=== PATIENT | male | born 2000 | race Caucasian/White ===

== ENCOUNTER 2024-08-16 03:31 | Emergency (ER) | payer OTHER, SELFPAY ==
[2024-08-16 03:34] VITALS: BP 154/104
[2024-08-16 03:51] VITALS: BMI 23.0
[2024-08-16 03:53] VITALS: BP 148/94
[2024-08-16 05:00] VITALS: BP 135/68
[2024-08-16 05:05] LABS: Amphetamines Negative (Negative); Barbiturates Negative (Negative); Benzodiazepines Negative (Negative); Buprenorphine Negative (Negative); Cocaine Negative (Negative); Marijuana Negative (Negative); Methadone Negative (Negative); Methamphetamines Negative (Negative); Opiates Negative (Negative); Phencyclidine Negative (Negative); Tricyclic Antidepressants Negative (Negative)
[2024-08-16 06:36] VITALS: BP 109/74
--- NOTE | 2024-08-16 06:36 | ED.GENMED ---
History of Present Illness
General
Chief Complaint: Crisis Evaluation
Source: patient and family
Time Seen by Provider: 08/16/24 06:36
History of Present Illness
History of Present Illness:
Patient brought to the emergency room by parents for evaluation because the patient had some suicidal ideations. Patient has already spoken to crisis. Though he has some vague thoughts of suicide he has no specific plan on doing anything
currently. Patient is hooked in with outpatient psychiatric care. Patient denies any ingestions of medication. He denies any recreational alcohol or drug use.
Phy Exam
Physical Exam
Physical Exam:
General: Awake, Alert, Oriented X3. No acute distress.
Vitals: unremarkable
Head: Atraumatic
Eyes: Pupils equal, EOMI
Lungs: Clear and equal b/l
Heart: Regular rate, no murmurs
Neuro: Nonfocal
Skin: Warm, dry, no rash
Extremities: pulses equal b/l, no edema
Course
Orders/Labs/Results
Orders:
Orders
08/16/24 03:38
1:1 Observation - Suicide/ Violent Behavior As Directed
08/16/24 03:58
Crisis Consult Routine
Reason for Consult: suicidal ideation.
08/16/24 04:29
Urine Drug Abuse Screen Urgent
Date Specimen was Collected: 08/16/24
Time Specimen was Collected: 03:58
Vital Signs
Initial and Last Documented VS:
Initial Vital Signs
Temp Pulse Resp BP Pulse Ox
98.7 F 103 20 154/104 98
08/16/24 03:34 08/16/24 03:34 08/16/24 03:34 08/16/24 03:34 08/16/24 03:34
Last Documented Vital Signs
Temp Pulse Resp BP Pulse Ox
98.7 F 100 18 109/74 99
08/16/24 03:34 08/16/24 06:36 08/16/24 06:36 08/16/24 06:36 08/16/24 06:36
MDM/Problems Addressed
Differential Diagnosis Includes:
Suicidal ideations, depression
MDM/Problems Addressed:
Patient cleared by crisis. He denies any present desire to hurt himself. Parents are comfortable taking him home. No medical issues requiring intervention the patient did run out of his mirtazapine. I will send a prescription for a week to allow
him time to get it refilled.
*Pulse Oximetry
Patient hypoxic: no
*Critical Care Note
Total Time (30-74mins, 75-104mins- exclusive of procedures): Not Applicable
ED Attending Note
-
Portions of this chart may have been created with voice recognition software.� Occasional wrong word or��sound alike� substitutions may have occurred due to the inherent limitations of voice recognition software.
Discharge Plan
Departure
Patient Disposition: Home (Routine Discharge)
Date of Disposition: 08/16/24
Time of Disposition: 06:36
Patient with high blood pressure during this ER visit?: No
Condition: Good
Discharge Problem:
Suicidal ideations
Instructions: Depression, Adult (DC)
Prescriptions:
New
mirtazapine 7.5 mg tablet
7.5 mg PO HS Qty: 7 0RF
No Action
quetiapine 25 mg Tablet
25 mg PO BID
fluoxetine 40 mg Capsule
40 mg PO DAILY
mirtazapine 7.5 mg Tablet
7.5 mg PO HS
Referrals:
Richie Garcias MD [Family Provider] -
Activity Restrictions/Additional Instructions:
Follow up as instructed by cabinet worker.
Interventions
Interventions:
*Risk Screen - Suicide Last Done: 08/16/24 03:34
*General Assessment Last Done: 08/16/24 03:34
*Neglect/Abuse Screening Last Done: 08/16/24 03:34
*ED- Fall Risk Assessment Last Done: 08/16/24 03:52
*ED COVID-19 Vaccine History Last Done: 08/16/24 03:52
*Nursing Disposition Last Done: 08/16/24 06:41
ED-Psychological Assessment Last Done: 08/16/24 04:34
Discharge Date and Time
Discharge Date/Time: 08/16/24 06:44
Print Language: LAO
== END 2024-08-16 06:44 | disposition home or self-care (01) ==
LOC: EMR 03:31
PROVIDERS: Emergency Medicine; EMERGENCY PHYSICIAN Emergency Medicine; FAMILY PHYSICIAN Family Medicine
DX: R45.851 Suicidal ideations (principal); Z76.0 Encounter for issue of repeat prescription
CPT/HCPCS: 99283; 80306